=== PATIENT | female | born 2000 | race Caucasian/White ===

== ENCOUNTER 2021-02-08 11:47 | Emergency (ER) | payer MEDICAID, OTHER ==
[~2021-02-08] VITALS: Ht 162.6 cm; Wt 77.0 kg
[2021-02-08 14:47] LABS: BASOPHILS % 0.3 % (0.0-2.0); EOSINOPHILS % 0.4 % (0.0-5.0); HEMATOCRIT. 41.2 % (36.0-48.0); HEMOGLOBIN. 13.9 g/dL (12.0-16.0); LYMPHOCYTES % 10.1 % (20.0-50.0); MEAN CORPUSCULAR HEMOGLOBIN 29.3 pg (28.0-32.0); MEAN CORPUSCULAR VOLUME 86.7 fL (81.0-99.0); MEAN PLATELET VOLUME 9.6 fl (7.4-10.4); MONOCYTES % 3.3 % (2.0-8.0); NEUTROPHILS % 85.9 % (40.0-76.0); PLATELET 277 x1000/uL (130-400); RED BLOOD CELL COUNT 4.75 mill/uL (4.2-5.4); RED CELL DISTRIBUTION WIDTH 13.1 % (11.6-14.6)
[2021-02-08 14:53] LABS: CHLORIDE 106 mEq/L (98-107); PROTHROMBIN TIME 10.7 sec (9.6-11.0)
[2021-02-08 15:02] LABS: HCG SCREEN NEGATIVE
[2021-02-08 16:23] LABS: CLARITY URINE CLEAR (CLEAR); COLOR URINE YELLOW (YELLOW); KETONES URINE NEGATIVE (NEGATIVE); LEUKOCYTE ESTERASE URINE 1+ (NEGATIVE); NITRITE URINE NEGATIVE (NEGATIVE); OCCULT BLOOD URINE TRACE (NEGATIVE); PROTEIN URINE NEGATIVE (NEGATIVE); SPECIFIC GRAVITY URINE 1.007 (1.005-1.030); UROBILINOGEN URINE 0.2 E.U./dL (0.2-1.0)
[2021-02-08] MEDS ORDERED: NITR-87 MT (16:56)
[2021-02-08] MEDS ORDERED: SODIUM CHLORIDE 0.9% 1,000 ML IV ONE (17:00)
[2021-02-08] MEDS ORDERED: NITROFURANTOIN 100MG M/M CAPSULE PO ONE (17:00)
[2021-02-08] MEDS ORDERED: ONDANSETRON HCL 4MG/2ML INJ IV ONE (18:15)
[2021-02-08] MEDS ORDERED: MORPHINE SULFATE 2 MG/ML CPJ (NOT FOR IM USE) IV NR (18:15)
[2021-02-08] MEDS ORDERED: MORPHINE SULFATE 4 MG/ML CPJ (NOT FOR IM USE) IV ONE (18:15)
[2021-02-08] MEDS ORDERED: IOHEXOL-300 100 ML BOTTLE ONE (19:03)
[2021-02-08 19:36] VITALS: BP 125/84
== END 2021-02-08 19:52 | disposition home or self-care (01) ==
LOC: ER 11:47
DX: N39.0 Urinary tract infection, site not specified (principal)
CPT/HCPCS: 36415; 74177; 76830; 76856; 80053; 81003; 81025; 83605; 83690; 84703; 85025; 85610; 96361; 96374; 96375; 99285; J2270; J2405; J7030; Q9967

== ENCOUNTER 2024-12-02 00:57 | Emergency (ER) | payer OTHER ==
[~2024-12-02] VITALS: Ht 162.6 cm; Wt 77.0 kg
[~2024-12-02 00:57] MED LIST: NITR-87 MT
[2024-12-02 01:12] VITALS: O2SAT 99
[2024-12-02 01:30] VITALS: TEMP 36.7
[2024-12-02 02:15] VITALS: BP 130/99; PULSE 74; RESP 18; O2SAT 99
== END 2024-12-02 02:16 | disposition home or self-care (01) ==
LOC: ER 00:57
DX: R20.2 Paresthesia of skin (principal); R20.0 Anesthesia of skin; Z79.899 Other long term (current) drug therapy
CPT/HCPCS: 71045; 93005; 99283